=== PATIENT | female | born 1990 | race African-American/Black ===

== ENCOUNTER 2018-02-02 12:22 | Inpatient (IN) ==
[2018-02-02] MEDS ORDERED: LACTATED RINGERS 500 ML IV PRN (12:39)
[2018-02-02] MEDS ORDERED: LACTATED RINGERS 250 ML IV ONE (12:39)
[2018-02-02] MEDS ORDERED: ONDANSETRON 4 MG/2 ML VIAL IV PRN (12:39)
[2018-02-02] MEDS ORDERED: OXYTOCIN/LR 20 UNIT/1,000 ML BAG IV ONE ×2 (12:41→16:00)
[2018-02-02] MEDS ORDERED: AMPICILLIN INJ 2,000 MG in SODIUM CHLORIDE 0.9% 100 ML IV ONE (12:44)
[2018-02-02] MEDS ORDERED: AMPICILLIN 2,000 MG VIAL ONE (12:49)
[2018-02-02] MEDS ORDERED: SODIUM CHLORIDE 0.9% 100 ML IV ONE (12:49)
[2018-02-02] MEDS ORDERED: LACTATED RINGERS 1,000 ML IV SCH (13:00)
[2018-02-02 13:06] LABS: Basophils % 0.1 % (0.0-0.8); Eosinophils % 0.4 % (0.00-10.9); Hemoglobin 13.4 GM/DL (12.0-16.0); Immature Granulocytes % 0.6 %; Immature Granulocytes Absolute 0.05 #; Lymphocytes % 12.2 % (21.3-54.2); Mean Corpuscular HGB Conc 34.4 GM/DL (32-36); Mean Corpuscular Hemoglobin 31 PG (27-34); Mean Corpuscular Volume 90.9 FL (87-102); Mean Platelet Volume 9.8 FL (9.6-12.0); Monocytes # 0.6 10*3/uL (0.11-0.8); Monocytes % 7.1 % (1.7-12.7); Neutrophils # 6.6 10*3/uL (1.4-7.4); Neutrophils % 79.6 % (38.7-73.9); Platelet Count 214 T/CUMM (130-400); Red Blood Count 4.29 MC/CUMM (3.8-5.5); Red Cell Distribution Width 14.6 % (9.3-17.3); White Blood Count 8.3 T/CUMM (4-12)
[2018-02-02] MEDS ORDERED: OXYTOCIN/LR 20 UNIT/1,000 ML BAG IV SCH (13:30)
[2018-02-02 13:34] LABS: Albumin 3.2 G/DL (3.4-5.0); Bilirubin,Total 0.4 MG/DL (0.2-1.0); Osmolality,Calculated 272.5 MOS/KG (273-304); Potassium 3.9 MMOL/L (3.5-5.1); Total Protein 7.1 G/DL (6.4-8.3)
[2018-02-02 13:37] LABS: Uric Acid 4.7 MG/DL (2.6-6.0)
[2018-02-02] MEDS ORDERED: LIDOCAINE 2% 20 ML VIAL ONE (14:18)
[2018-02-02 14:36] LABS: HIV Antigen/Antibody Result Nonreactive (Nonreactive); Hepatitis B Surface Ag Quant < 0.10 Index; Hepatitis B Surface Ag Result Negative (Negative); Rubella Antibody IgG 49.6 IU/ML
[2018-02-02] MEDS ORDERED: WITCH HAZEL PADS 100/JAR TOP PRN (15:55)
[2018-02-02] MEDS ORDERED: HYDROCORTISONE 2.5% RECTAL CREAM 30 GM TUBE TOP PRN (15:55)
[2018-02-02] MEDS ORDERED: BENZOCAINE 20%/MENTHOL 0.5% SPRAY 56 GM CAN TOP PRN (15:55)
[2018-02-02] MEDS ORDERED: RHO(D) IMMUNE GLOBULIN 300 MCG SYRINGE IM ONE (15:55)
[2018-02-02] MEDS ORDERED: LANOLIN 50% CREAM 0.3 OZ TUBE TOP PRN (15:55)
[2018-02-02] MEDS ORDERED: MEASLES/MUMPS/RUBELLA VACCINE 0.5 ML VIAL SUBCUT ONE (15:55)
[2018-02-02] MEDS ORDERED: DIPH/TET/ACEL PERT BOOSTER VACCINE 0.5 ML VIAL IM ONE (15:55)
[2018-02-02] MEDS ORDERED: BISACODYL 10 MG SUPP RECTAL PRN (15:55)
[2018-02-02] MEDS ORDERED: oxyCODONE/ACETAMINOPHEN 5-325 MG TABLET PO PRN ×2 (15:55)
[2018-02-02] MEDS ORDERED: ACETAMINOPHEN 325 MG TABLET PO PRN (15:55)
[2018-02-02] MEDS: IBUPROFEN 800 MG TABLET PO PRN (16:04)
[2018-02-02] MEDS: DOCUSATE SODIUM 100 MG CAPSULE PO SCH (21:15)
[2018-02-03 05:37] LABS: Basophils % 0.2 % (0.0-0.8); Eosinophils # 0.1 10*3/uL (0.0-0.87); Hematocrit 34.4 VOL% (35.7-47.0); Hemoglobin 12.1 GM/DL (12.0-16.0); Immature Granulocytes % 0.4 %; Immature Granulocytes Absolute 0.04 #; Lymphocytes # 1.4 10*3/uL (1.4-4.0); Lymphocytes % 15.4 % (21.3-54.2); Mean Corpuscular HGB Conc 35.2 GM/DL (32-36); Mean Corpuscular Hemoglobin 31 PG (27-34); Mean Corpuscular Volume 88.2 FL (87-102); Mean Platelet Volume 9.8 FL (9.6-12.0); Monocytes # 0.7 10*3/uL (0.11-0.8); Monocytes % 7.5 % (1.7-12.7); Neutrophils # 6.9 10*3/uL (1.4-7.4); Neutrophils % 75.5 % (38.7-73.9); Platelet Count 202 T/CUMM (130-400); Red Cell Distribution Width 14.4 % (9.3-17.3); White Blood Count 9.1 T/CUMM (4-12)
[2018-02-03] MEDS: IBUPROFEN 800 MG TABLET PO PRN ×2 (08:30→16:05)
[2018-02-03] MEDS: DOCUSATE SODIUM 100 MG CAPSULE PO SCH ×2 (17:08→20:50)
[2018-02-04] MEDS: IBUPROFEN 800 MG TABLET PO PRN (02:50)
[2018-02-04 08:29] VITALS: BP 101/59
[2018-02-04] MEDS: DOCUSATE SODIUM 100 MG CAPSULE PO SCH (10:40)
== END 2018-02-04 12:15 | disposition home or self-care (01) | DRG 775 ==
LOC: N.LDOUT 12:22 → N.LD 12:23 → N.OB 18:12
PROVIDERS: ADMIT Obstetrics & Gynecology; ATTEND Obstetrics & Gynecology

== ENCOUNTER 2020-09-09 06:11 | Inpatient (IN) ==
[2020-09-09] MEDS ORDERED: MEPERIDINE 50 MG/1 ML VIAL IV PRN (06:20)
[2020-09-09] MEDS ORDERED: ONDANSETRON 4 MG/2 ML VIAL IV PRN (06:20)
[2020-09-09] MEDS ORDERED: LACTATED RINGERS 1,000 ML IV SCH (06:30)
[2020-09-09 06:46] LABS: Basophils % 0.2 % (0.0-0.8); Eosinophils % 0.7 % (0.00-10.9); Hematocrit 31.6 VOL% (35.7-47.0); Hemoglobin 10.1 GM/DL (12.0-16.0); Immature Granulocytes % 0.9 %; Immature Granulocytes Absolute 0.05 #; Lymphocytes # 1.2 10*3/uL (1.4-4.0); Lymphocytes % 21.3 % (21.3-54.2); Mean Corpuscular Volume 78.8 FL (87-102); Mean Platelet Volume 9.3 FL (9.6-12.0); Monocytes % 7.2 % (1.7-12.7); Neutrophils % 69.7 % (38.7-73.9); Platelet Count 236 T/CUMM (130-400); Red Blood Count 4.01 MC/CUMM (3.8-5.5); Red Cell Distribution Width 22.5 % (9.3-17.3); White Blood Count 5.6 T/CUMM (4-12)
[2020-09-09 07:16] LABS: Albumin 2.7 G/DL (3.4-5.0); Bilirubin,Total 0.4 MG/DL (0.2-1.0); Osmolality,Calculated 273.5 MOS/KG (273-304); Total Protein 7.2 G/DL (6.4-8.3)
[2020-09-09] MEDS ORDERED: OXYTOCIN/LR 20 UNIT/1,000 ML BAG IV SCH (08:00)
[2020-09-09] MEDS ORDERED: WITCH HAZEL PADS 100/JAR TOP PRN (16:10)
[2020-09-09] MEDS ORDERED: OXYTOCIN/LR 20 UNIT/1,000 ML BAG IV ONE (16:10)
[2020-09-09] MEDS ORDERED: LANOLIN 50% CREAM 0.3 OZ TUBE TOP PRN (16:10)
[2020-09-09] MEDS ORDERED: DIPH/TET/ACEL PERT BOOSTER VACCINE 0.5 ML VIAL IM ONE (16:10)
[2020-09-09] MEDS ORDERED: BENZOCAINE 20%/MENTHOL 0.5% SPRAY 56 GM CAN TOP PRN (16:10)
[2020-09-09] MEDS ORDERED: MEASLES/MUMPS/RUBELLA VACCINE 0.5 ML VIAL SUBCUT ONE (16:10)
[2020-09-09] MEDS ORDERED: RHO(D) IMMUNE GLOBULIN 300 MCG SYRINGE IM ONE (16:10)
[2020-09-09] MEDS ORDERED: BISACODYL 10 MG SUPP RECTAL PRN (16:10)
[2020-09-09] MEDS ORDERED: ACETAMINOPHEN 325 MG TABLET PO PRN (16:10)
[2020-09-09] MEDS ORDERED: HYDROCORTISONE 2.5% RECTAL CREAM 30 GM TUBE TOP PRN (16:10)
[2020-09-09] MEDS ORDERED: oxyCODONE/ACETAMINOPHEN 5-325 MG TABLET PO PRN ×2 (16:10)
[2020-09-09] MEDS: IBUPROFEN 800 MG TABLET PO PRN (16:18)
[2020-09-09] MEDS: DOCUSATE SODIUM 100 MG CAPSULE PO SCH (21:43)
[2020-09-10] MEDS: IBUPROFEN 800 MG TABLET PO PRN ×2 (01:37→11:34)
[2020-09-10 05:27] LABS: Basophils % 0.2 % (0.0-0.8); Eosinophils # 0.1 10*3/uL (0.0-0.87); Eosinophils % 0.6 % (0.00-10.9); Hematocrit 27.5 VOL% (35.7-47.0); Hemoglobin 8.9 GM/DL (12.0-16.0); Immature Granulocytes % 0.4 %; Immature Granulocytes Absolute 0.04 #; Lymphocytes # 1.5 10*3/uL (1.4-4.0); Lymphocytes % 13.7 % (21.3-54.2); Mean Corpuscular HGB Conc 32.4 GM/DL (32-36); Mean Platelet Volume 9.3 FL (9.6-12.0); Monocytes % 8.8 % (1.7-12.7); Neutrophils % 76.3 % (38.7-73.9); Platelet Count 228 T/CUMM (130-400); Red Blood Count 3.48 MC/CUMM (3.8-5.5); Red Cell Distribution Width 22.6 % (9.3-17.3); White Blood Count 10.9 T/CUMM (4-12)
[2020-09-10 06:27] LABS: Anisocytosis 1+; Hypochromasia 1+; Microcytosis 1+
[2020-09-10 06:28] LABS: Platelet Estimate Normal
[2020-09-10] MEDS: DOCUSATE SODIUM 100 MG CAPSULE PO SCH (09:54)
[2020-09-10 15:43] VITALS: BP 124/74
== END 2020-09-10 16:35 | disposition home or self-care (01) | DRG 807 ==
LOC: N.LD 06:11 → N.OB 17:17
PROVIDERS: ADMIT Obstetrics & Gynecology; ATTEND Obstetrics & Gynecology